=== PATIENT | male | born 1955 | race Caucasian/White ===

== ENCOUNTER 2020-12-03 07:06 | Outpatient (CLI) | payer BC, SELFPAY ==
--- NOTE | ~2020-12-03 | US_ITS ---
EXAMINATION: US abdomen limited EXAM DATE: 12/03/2020 08:00 INDICATION: Elevated liver enzymes. TECHNIQUE: Multiple grayscale and Doppler images of the abdomen right upper quadrant were obtained (cristi y a technologist who performed the scan) and subsequently reviewed. There is no prior study for natalie lr. FINDINGS: The pancreatic head and body are normal in appearance. The pancreatic tail is not visualized. The l iver has normal echogenicity and contour. There are no focal liver lesions identified. There is no evidence of intrahepatic biliary duct dilation. Portal venous flow was seen in the hepatopedal, nor mal direction and has normal Doppler waveform. No right-sided hydronephrosis. Common bile duct measures 4 mm, which is normal. The gallbladder wall is normal in thickness, with ex pected amount of distention. No sonographic evidence of pericholecystic fluid. There is no cholelit hiases. Technologist performing exam reports patient did not demonstrate sonographic Hairston's sign. Please note that this sign is less reliable in patients who have received pain medication. IMPRESSION: 1. Unremarkable abdominal ultrasound exam. Reviewed, dictated and finalized at location B.
== END 2020-12-03 07:07 | disposition home or self-care (01) ==
LOC: ANHIMG 07:12
PROVIDERS: PCP Internal Medicine; Visit Provider Internal Medicine
DX: R74.01 Elevation of levels of liver transaminase levels (principal)
CPT/HCPCS: 76705

== ENCOUNTER → 2022-09-10 07:32 | Outpatient (CLI) | payer MEDICARE, SELFPAY ==
--- NOTE | ~2022-09-10 | US_ITS ---
Limited Abdominal Sonogram: Real-time sonographic imaging of the right upper quadrant was performed. Clinical History: Abnormal liver enzymes Findings: The liver appears echogenic, with no evidence of mass lesion or bile duct dilatation. Main portal vein demonstrates normal direction of flow. The gallbladder is well distended, and appears no rmal with no evidence of gallstone or wall thickening. The common bile duct measures 5 mm. The visua lized pancreas, aorta, and IVC are unremarkable. Impression: Diffuse fatty infiltration of the liver. Reviewed, dictated and finalized at location M. [employer] Impression: Diffuse fatty infiltration of the liver.
== END ==
PROVIDERS: PCP Internal Medicine; Visit Provider Internal Medicine
DX: R74.01 Elevation of levels of liver transaminase levels (principal); K76.0 Fatty (change of) liver, not elsewhere classified
CPT/HCPCS: 76705

== ENCOUNTER 2022-10-09 09:16 | Outpatient (CLI) | payer MEDICARE, SELFPAY ==
--- NOTE | ~2022-10-09 | MR_ITS ---
MRI of the cervical spine Clinical History: Neck pain Technique: Axial T2-weighted and gradient images, and sagittal T1-weighted, T2-weighted, and STIR abhi ges were acquired. Findings: There is mild reversal normal cervical lordosis. There is anterior fusion from C6 to C7, wi th hardware and associated susceptibility artifact. There is severe degenerative disc narrowing at C5 -C6. No suspicious bone marrow signal abnormality evident. No acute fracture identified. At C2-C3, there is no disc bulge or herniation. No spinal canal stenosis or cord compression. There i s right facet arthropathy, without definite neural foraminal narrowing. At C3-C4, there is no significant disc bulge or herniation. No spinal canal stenosis or cord compress ion. There is bilateral facet arthropathy, left worse than right, with left neural foraminal narrowin g. Right neural foramen probably preserved. At C4-C5, there is no significant disc bulge or herniation. No spinal canal stenosis or cord compress ion. There is bilateral facet arthropathy, right worse than left, with probable bilateral neural fora brett narrowing. At C5-C6, there is disc osteophyte complex which minimally flattens the ventral cord. There is advanc ed right neural foraminal narrowing. There is probable mild left neural foraminal narrowing. At C6-C7, there is no disc bulge or herniation. No spinal canal stenosis, cord compression, or neural foraminal narrowing evident. No abnormal signal seen in the spinal cord. Paravertebral soft tissues are unremarkable. Impression: Anterior fusion from C6 to C7, as detailed above. Degenerative spondylitic changes, as above, overall mild to moderate in severity. Reviewed, dictated and finalized at [facility]. Impression: Anterior fusion from C6 to C7, as detailed above. Degenerative spondylitic changes, as above, overall mild to moderate in severit y.
== END 2022-10-09 09:17 ==
PROVIDERS: PCP Internal Medicine; Visit Provider Internal Medicine
DX: M54.2 Cervicalgia (principal); Z98.1 Arthrodesis status; M43.02 Spondylolysis, cervical region
CPT/HCPCS: 72141

== ENCOUNTER 2024-12-08 07:05 | Outpatient (CLI) | payer MEDICARE, SELFPAY ==
--- NOTE | ~2024-12-08 | US_ITS ---
EXAMINATION: US right upper quadrant DATE: 12/08/2024 07:52 INDICATION: abnormal levels of other serum enzymes TECHNIQUE: Multiple grayscale and Doppler ultrasound images of the right upper quadrant were obtained . COMPARISON: None available. FINDINGS: The visualized portions of the pancreas are normal. The liver is normal in size with increa sed echogenicity and normal echotexture. No surface nodularity. Normal hepatopetal flow in the main p ortal vein. The gallbladder is normal with no abnormal wall thickening, pericholecystic fluid or ston es. The common bile duct measures 4 mm. There was no sonographic Hairston sign. IMPRESSION: Echogenic liver, most commonly due to steatosis but also can be seen with hepatitis and fibrosis. Oth erwise normal right upper quadrant ultrasound findings. Reviewed, dictated and finalized at location K. IMPRESSION: Echogenic liver, most commonly due to steatosis but also can be seen with hepat itis and fibrosis. Otherwise normal right upper quadrant ultrasound findings.
== END 2024-12-08 07:06 | disposition home or self-care (01) ==
PROVIDERS: PCP Internal Medicine; Visit Provider Internal Medicine
DX: K76.89 Other specified diseases of liver (principal); R74.8 Abnormal levels of other serum enzymes
CPT/HCPCS: 76705